=== PATIENT | female | born 1955 | race Caucasian/White ===

== ENCOUNTER 2018-12-04 11:02 | Emergency (ER) | payer SELFPAY ==
[~2018-12-04] VITALS: Ht 157.5 cm; Wt 59.7 kg
[2018-12-04 11:07] VITALS: Ht 157.5 cm; Wt 59.7 kg
--- NOTE | 2018-12-04 11:18 | ERD ---
ER Documentation Chief Complaint Chief Complaint dizziness HPI The patient is a 63-year-old female, presenting to the ER because of acute dizziness, sensation of room spinning, bilateral ear pain, vomiting of mostly mucus intermittently for the last 3 days. She denies similar symptoms previously, denies headache, neck pain, chest pain, dyspnea, abdominal pain, vomiting, dysuria, diarrhea. She does not smoke nor drink Past medical history: None Past surgical history: Cholecystectomy ROS All systems reviewed and are negative except as per history of present illness. Medications Home Meds Active Scripts Meclizine Hcl* (Antivert*) 12.5 Mg Tab, 25 MG PO Q6H PRN for DIZZINESS, #20 TAB Prov:COLIN NOGUERA MD 12/04/18 Sulfamethoxazole/Trimethoprim* (Bactrim Ds* Tablet) 1 Each Tablet, 1 TAB PO BID, #14 TAB Prov:COLIN NOGUERA MD 12/04/18 Allergies Allergies: Coded Allergies: No Known Allergy (Unverified , 12/04/18) Physical Exam Vitals Vital Signs Date Temp Pulse Resp B/P (MAP) Pulse Ox O2 O2 Flow FiO2 Time Delivery Rate 12/04/18 98.0 66 18 175/75 98 11:07 (108) Physical Exam Const: No acute distress. Head: Atraumatic. Eyes: Normal Conjunctiva. ENT: Normal External Ears, Nose and Mouth. Bilateral tympanic membrane s are within normal limit Neck: Full range of motion. No meningismus. Resp: Clear to auscultation bilaterally. Cardio: Regular rate and rhythm. Abd: Soft, non distended, normal bowel sounds, non tender. Skin: No petechiae or rashes. Back: No midline or flank tenderness. Ext: No cyanosis, or edema. Neur: Awake and alert. No focal deficit Psych: Normal Mood and Affect. Result Diagram: 12/04/18 1130 12/04/18 1130 Results 24 hrs Laboratory Tests Test 12/04/18 11:29 12/04/18 11:30 Bedside Urine pH (LAB) 7.0 Bedside Urine Protein (LAB) Negative Bedside Urine Glucose (UA) Negative Bedside Urine Ketones (LAB) Negative Bedside Urine Blood Trace-lysed Bedside Urine Nitrite (LAB) Negative Bedside Urine Leukocyte Esterase (L 1+ White Blood Count 9.1 10^3/ul Red Blood Count 5.40 10^6/ul Hemoglobin 15.9 g/dl Hematocrit 46.0 % Mean Corpuscular Volume 85.2 fl Mean Corpuscular Hemoglobin 29.4 pg Mean Corpuscular Hemoglobin Concent 34.6 g/dl Red Cell Distribution Width 12.3 % Platelet Count 335 10^3/UL Mean Platelet Volume 9.7 fl Immature Granulocytes % 0.400 % Neutrophils % 73.1 % Lymphocytes % 17.6 % Monocytes % 7.8 % Eosinophils % 0.8 % Basophils % 0.3 % Nucleated Red Blood Cells % 0.0 /100WBC Immature Granulocytes # 0.040 10^3/ul Neutrophils # 6.7 10^3/ul Lymphocytes # 1.6 10^3/ul Monocytes # 0.7 10^3/ul Eosinophils # 0.1 10^3/ul Basophils # 0.0 10^3/ul Nucleated Red Blood Cells # 0.0 10^3/ul Sodium Level 142 mmol/L Potassium Level 3.7 mmol/L Chloride Level 107 mmol/L Carbon Dioxide Level 25 mmol/L Anion Gap 10 Blood Urea Nitrogen 11 mg/dl Creatinine 0.73 mg/dl Est Glomerular Filtrat Rate mL/min > 60 mL/min Glucose Level 130 mg/dl Calcium Level 9.3 mg/dl Magnesium Level 2.3 mg/dl Current Medications Medications Dose Sig/Liban Start Time Status Last (Trade) Ordered Route PRN Stop Time Admin Dose Reason Admin Meclizine 25 mg ONCE ONCE 12/04/18 DC 12/04/18 HCl PO 11:30 12/04/18 11:33 (Antivert) 11:31 Ondansetron 4 mg ONCE STAT 12/04/18 DC 12/04/18 HCl (Zofran IV 11:22 12/04/18 11:33 Inj) 11:25 Procedures/[place] [id number] Radiology Main Line: [phone] DIAGNOSTIC IMAGING REPORT Patient: RUBÉN ENAMORADO : 1955 Age: 63 Sex: F MR #: [id number] DOS: 12/04/18 1122 Ordering MD: COLIN NOGUERA MD Location: E/R Room/Bed: PROCEDURE: CT Brain without contrast. CLINICAL INDICATION: Headache. TECHNIQUE: A CT of the brain without contrast was performed utilizing axial sections from the skull base through the vertex. One or more the following does reduction techniques were utilized: Automated exposure control, adjustment of the mA/ or kV according to patient's size, or use of iterative reconstruction technique. Total exam CTDIvol is 39 MGy and DLP is 634 mGy-cm. DICOM images are available. COMPARISON: None available. FINDINGS: The ventricles and sulci are mildly prominent indicative of volume loss. There is no intracranial hemorrhage, mass effect or midline shift. No abnormal intra- axial or extra-axial fluid collections are seen. The bennett/white matter differentiation is well preserved. Partially empty sella turcica is noted. There are mild scattered foci of hypoattenuation in the periventricular, deep, and subcortical white matter, which are nonspecific in etiology but likely reflect chronic small vessel ischemic changes. There are mild intracranial vascular calcifications consistent with atherosclerosis. The visualized paranasal sinuses demonstrate mild mucosal thickening more pronounced in the anterior left ethmoid air cells and partially visualized left maxillary sinus with associated small mucoid secretion. The mastoid air cells are essentially clear. IMPRESSION: 1. No acute intracranial hemorrhage, transcortical infarction or mass effect. 2. Mild intracranial atherosclerosis and chronic small vessel ischemic changes. 3. Partially empty sella turcica. 4. Mild generalized cerebral volume loss. 5. Mild scattered paranasal sinus disease with associated mucoid secretion. RPTAT: UU .Mian Card MD, MD Date Time Electronically viewed and signed by .Mian Card MD, MD on 12/04/2018 13:02 .N/ CC: COLIN NOGUERA MD [phone] EKG: Read by emergency physician Rate/Rhythm: Normal Sinus Rhythm 73 beats/min QRS, ST, T-waves: No ST elevation, no T inversion, septal Q's Impression: Abnormal EKG MEDICAL MAKING DECISION: The patient is a 63-year-old female, presenting with acute dizziness of unclear etiology, acute cystitis. She was treated with Antivert 25 mg p.o. for acute dizziness and Zofran IV for nausea with good response, is stable for outpatient follow-up She was treated with Antivert 25 mg p.o. for acute dizziness, Zofran IV for nausea with good response the differential diagnoses considered include but are not limited to central causes such as cerebellar infarct, cerebellar hemorrhage, cerebellar tumor, acoustic neuroma, peripheral causes such as benign positional vertigo, labyrinthitis, medication, Meniere's disease. Departure Diagnosis: Primary Impression: UTI (urinary tract infection) Additional Impression: Dizziness Condition: Good Comments He was discharged with Bactrim DS and Antivert I discussed the findings with the patient. I advised the patient to follow-up with the primary physician in about 1-2 days, sooner if needed and return if any concern. Disclaimer: Inadvertent spelling and grammatical errors are likely due to EHR/dictation software use and do not reflect on the overall quality of patient care. Also, please note that the electronic time recorded on this note does not necessarily reflect the actual time of the patient encounter. COLIN NOGUERA MD Dec 04, 2018 11:18
[2018-12-04] MEDS ORDERED: ONDANSETRON 4 MG INJ IV STA (11:22)
[2018-12-04] MEDS ORDERED: MECLIZINE 12.5 MG TAB PO ONE (11:30)
[2018-12-04] MEDS ORDERED: SULF1TAB31 PO (13:30)
[2018-12-04] MEDS ORDERED: MECL12.574 PO (13:31)
[2018-12-04 13:49] VITALS: BP 138/78; PULSE 66; RESP 16
== END 2018-12-04 13:50 | disposition home or self-care (01) ==
LOC: E/R 11:02
DX: N39.0 Urinary tract infection, site not specified (principal); R40.2142 Coma scale, eyes open, spontaneous, at arrival to emergency department; R40.2252 Coma scale, best verbal response, oriented, at arrival to emergency department; R40.2362 Coma scale, best motor response, obeys commands, at arrival to emergency department
CPT/HCPCS: 36415; 70450; 80048; 81003; 83735; 85025; 93005; 96374; 99285; J2405